=== PATIENT | female | born 1940 | race Caucasian/White ===

== ENCOUNTER 2016-05-21 20:34 | Emergency (ER) | payer OTHER ==
[~2016-05-21] VITALS: Ht 160 cm; Wt 56.0 kg
[~2016-05-21 20:34] MED LIST: CIPR-173 PO; DICL75TA2; DOCU-144 PO; DON PO; HYDR-3498 PO; METF500T4; TRAM50TA2 PO; WARF2TAB; [UNRECOGNIZED DRUG - CODE] PO
[2016-05-21 21:38] VITALS: Ht 160 cm; Wt 56.0 kg
[2016-05-22] MEDS ORDERED: DICL100G37 TOP (00:20)
[2016-05-22] MEDS ORDERED: NAPR-260 PO (00:20)
[2016-05-22 00:34] VITALS: BP 116/56; PULSE 66; RESP 16; TEMP 98
--- NOTE | 2016-05-22 06:18 | ERD ---
DATE OF SERVICE: HISTORY OF PRESENT ILLNESS: The patient is a 76-year-old female complaining of bilateral lower ankl e pain for 2 days. The patient states she has had a long history of swelling in her ankles in the p ast. She had a history of a DVT; however, she has no calf tenderness or pain. She denies any numbn ess or tingling and denies any traumatic injuries. She states she is not taking medications for sym ptoms. She was on warfarin; however, she was told to stop many years ago and she has stopped. She has no chest pain or shortness of breath, no palpitations, no pleuritic chest pain, and no unilatera l leg swelling. PAST MEDICAL HISTORY: Denies any other medical problems. ALLERGIES: DENIES ALLERGIES TO MEDICATIONS. PAST SURGICAL HISTORY: Denies. SOCIAL HISTORY: Denies. REVIEW OF SYSTEMS: A 12-point review of systems was done. Refer to HPI for positives, all other sy stems negative. PHYSICAL EXAMINATION: VITAL SIGNS: Temperature is 98.2, pulse 88, blood pressure is 133/64, respiratory rate 20, O2 satur ation 100% on room air. Pain intensity is 6/10. GENERAL: The patient is well-appearing, well-nourished, no acute distress. HEART: Regular rate and rhythm. No murmurs, clicks, rubs or gallops. No S3 or S4. CHEST: Clear to auscultation bilaterally. There are no rales, wheezes or rhonchi. SKIN: There is no apparent rash or petechia. The skin is warm and dry. EXTREMITIES: The patient has no tenderness to palpation over bilateral ankles. There is some mild swelling noted. No erythema, no warmth. The patient does have full range of motion. Neurovascular ly intact to the distal extremity. There is no crepitus, no deformities. Compartments are soft. DIAGNOSIS: Osteoarthritis. MEDICAL DECISION MAKING: The patient's swelling is likely secondary to reactive arthritis. I have low suspicion for a vascular injury, low suspicion for infectious etiology. I did not feel there wa s indication for blood clots. I have low suspicion for CHF or fluid overload as the patient does no t have pitting edema seen on the extremities. DISCHARGE: The patient is discharged stable. The patient is given a prescription for Voltaren gel and naproxen and told to follow up with primary care within 1 to 2 days for reevaluation. The patie nt was told if symptoms progress or worsen to return to the ER. All other questions answered at tyler e of discharge. Discharge summary given at the time of departure. The patient understood and compl ied with plan. Dictated By: MARLYS JENNINGS for MISHA GUZMÁN/DIEGO Conf#: [id number] DID#: [id number]
== END 2016-05-22 00:35 | disposition home or self-care (01) ==
LOC: FTE 20:34
DX: M19.072 Primary osteoarthritis, left ankle and foot (principal); M19.071 Primary osteoarthritis, right ankle and foot; I10 Essential (primary) hypertension; E11.9 Type 2 diabetes mellitus without complications; F17.210 Nicotine dependence, cigarettes, uncomplicated
CPT/HCPCS: 99283